=== PATIENT | female | born 1985 | race American Indian/Alaskan Native ===

== ENCOUNTER 2021-10-31 05:35 | Emergency (ER) | payer SELFPAY ==
[2021-10-31 05:47] VITALS: BP 144/98
[2021-10-31 09:09] LABS: Amphetamine Screen,Urine Negative; Bacteria,Urine 4+ /HPF (Negative); Benzodiazepines Screen,Urine Negative; Calcium Oxalate Crystals,Urine 3+; Cannabinoid Screen,Urine Negative; Cocaine Screen,Urine Negative; Methadone Screen,Urine Negative; Mucus,Urine 3+ /HPF; Opiate Screen,Urine Negative
[2021-10-31 09:35] LABS: Bilirubin,Urine Negative (Negative); Color,Urine Straw (Yellow)
[2021-10-31 09:36] LABS: Blood,Urine Trace (Negative); Urobilinogen,Urine < 2.0 mg/dL (<2.0)
== END 2021-10-31 11:55 | disposition left against medical advice (07) ==
LOC: ED 05:35
DX: N89.8 Other specified noninflammatory disorders of vagina (principal); Z53.21 Procedure and treatment not carried out due to patient leaving prior to being seen by health care provider; Z79.899 Other long term (current) drug therapy
CPT/HCPCS: 80307; 81001; 87086